=== PATIENT | male | born 1970 | race Caucasian/White ===

== ENCOUNTER 2017-04-02 20:15 | Inpatient (IN) | payer OTHER ==
[~2017-04-02] VITALS: Ht 172.7 cm; Wt 105.8 kg
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
[2017-04-03 07:18] LABS: ALBUMIN 3.7 gm/dL (3.5-5.0); ALK PHOS 60 IU/L (33-138); ALT 40 IU/L (12-78); ANION GAP 11.2 (10.0-19.0); AST 20 IU/L (10-40); BLOOD UREA NITROGEN 12 mg/dL (6-24); CALCIUM 8.1 mg/dL (8.5-10.5); CHLORIDE 105 mMol/L (96-110); CO2 26 mMol/L (22-32); CREATININE 0.7 mg/dL (0.6-1.3); POTASSIUM 4.2 mMol/L (3.7-5.1); SODIUM 138 mMol/L (135-145); TOTAL BILIRUBIN 0.7 mg/dL (0.0-1.5); TOTAL PROTEIN 7.6 g/dL (6.0-8.4)
[2017-04-03 07:19] LABS: ESTIMATED GFR (MDRD EQUATION) > 60
[2017-04-03] MEDS ORDERED: AMARYL2 MG PO (09:45)
[2017-04-03] MEDS ORDERED: PAXIL20 MG PO (09:46)
[2017-04-03] MEDS ORDERED: PRINIVIL (ZESTR20 MG PO (09:47)
[2017-04-03] MEDS ORDERED: GLUCOPHAGE1000 MG PO (09:47)
[2017-04-04 05:09] LABS: BASOPHIL % 0.3 %; EOSINOPHIL # 0.1 K/uL (0.0-0.5); EOSINOPHIL % 0.5 %; HEMATOCRIT 36.3 % (37.0-53.0); IMMATURE GRANULOCYTE % 0.4 %; LYMPHOCYTE # 1.5 K/uL (0.8-4.0); LYMPHOCYTE % 14.6 %; MCHC 33.1 gm/dL (32.0-36.5); MCV 90.8 fl (83.0-98.0); MONOCYTE % 9.4 %; MPV 9.7 fl (9.4-12.4); NEUTROPHIL # (ANC) 7.7 K/uL (1.4-9.0); NEUTROPHIL % 74.8 %; NRBC % 0 /100WBC (0-0.00); PLATELET COUNT 216 K/uL (150-450); RDW-CV 12.6 % (11.9-14.6); WBC 10.3 K/uL (4.0-11.0)
== END 2017-04-06 15:00 | DRG 471 ==
LOC: GACC 20:15 → GMED 20:15 → GICU 21:27 → GPCU 21:27 → GICU 04-03 18:23
PROVIDERS: Internal Medicine; ADMIT Surgery
PROC: 0RG10K0 Fusion of Cervical Vertebral Joint with Nonautologous Tissue Substitute, Anterior Approach, Anterior Column, Open Approach (ICD-10-PCS; principal; 2017-04-03)
DX: M50.020 Cervical disc disorder with myelopathy, mid-cervical region, unspecified level (principal); J96.01 Acute respiratory failure with hypoxia; G95.89 Other specified diseases of spinal cord; S22.41XA Multiple fractures of ribs, right side, initial encounter for closed fracture; S14.3XXA Injury of brachial plexus, initial encounter; F60.9 Personality disorder, unspecified; E11.9 Type 2 diabetes mellitus without complications; F17.210 Nicotine dependence, cigarettes, uncomplicated; H91.90 Unspecified hearing loss, unspecified ear; I10 Essential (primary) hypertension; M43.07 Spondylolysis, lumbosacral region; F32.9 Major depressive disorder, single episode, unspecified; F41.9 Anxiety disorder, unspecified; S42.001A Fracture of unspecified part of right clavicle, initial encounter for closed fracture; V59.88XA Occupant (driver) (passenger) of pick-up truck or van injured in other specified transport accidents, initial encounter; E78.5 Hyperlipidemia, unspecified; Z98.1 Arthrodesis status
CPT/HCPCS: C1713; J0690; J1100; J1170; J1885; J2001; J2250; J2270; J2405; J3010; J3360; J7030; J7040; Q9967

== ENCOUNTER 2017-04-06 15:56 | Inpatient (IN) | payer OTHER ==
[~2017-04-06] VITALS: Ht 172.7 cm; Wt 101.2 kg
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
[~2017-04-06 15:56] MED LIST: AMARYL2 MG PO; GLUCOPHAGE1000 MG PO; PAXIL20 MG PO; PRINIVIL (ZESTR20 MG PO
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
--- NOTE | 2017-04-07 05:32 | NUR ---
Significant Event:A/O. 1 assist with gaitbelt and jeremias-walker. R) arm in sling and elevated when up. Edema glove to Right hand daily. Abrasions to forehead, back of neck, right elbow and a few scattered bruises too. Numbness & tingling to Right extremities upper and lower. [place] to right front of neck open to air and intact. Nicotene patch to back of left shoulder. Saline lock to inner left forearm, flushes well. VSS on room air. history of depression. ACHS accuchecks with appropriate sliding scale. HS glucose 186 no sliding scale needed. Percocet 2 tabs given X2 for pain last at 0107, relief noted. Wears alexander stockings during the day, calf pneumatics at night.Call light in reach. Bed alarm on. Follow up:Pain control. Edema glove. ACHS accuchecks.
[2017-04-07 05:43] LABS: BASOPHIL # 0.1 K/uL (0.0-0.2); BASOPHIL % 0.9 %; EOSINOPHIL # 0.2 K/uL (0.0-0.5); EOSINOPHIL % 2.2 %; HEMATOCRIT 35.4 % (37.0-53.0); HEMOGLOBIN 12.1 g/dL (12.0-17.0); IMMATURE GRANULOCYTE # 0.1 K/uL (0.0-0.3); IMMATURE GRANULOCYTE % 0.7 %; LYMPHOCYTE # 1.8 K/uL (0.8-4.0); MCH 30.6 pg (27.0-34.0); MCHC 34.2 gm/dL (32.0-36.5); MCV 89.6 fl (83.0-98.0); MONOCYTE # 0.9 K/uL (0.0-1.0); MONOCYTE % 12.3 %; MPV 9.4 fl (9.4-12.4); NEUTROPHIL # (ANC) 4.3 K/uL (1.4-9.0); NEUTROPHIL % 58.9 %; NRBC % 0 /100WBC (0-0.00); RBC 3.95 M/uL (4.00-6.00); RDW-CV 12.5 % (11.9-14.6); WBC 7.4 K/uL (4.0-11.0)
[2017-04-07 05:47] LABS: PLATELET COUNT 291 K/uL (150-450)
[2017-04-07 06:04] LABS: ALK PHOS 55 IU/L (33-138); ALT 32 IU/L (12-78); AST 21 IU/L (10-40); BLOOD UREA NITROGEN 16 mg/dL (6-24); CALCIUM 8.3 mg/dL (8.5-10.5); CHLORIDE 109 mMol/L (96-110); CO2 26 mMol/L (22-32); CREATININE 0.6 mg/dL (0.6-1.3); SODIUM 141 mMol/L (135-145); TOTAL PROTEIN 6.9 g/dL (6.0-8.4)
[2017-04-07 06:08] LABS: TOTAL BILIRUBIN 0.4 mg/dL (0.0-1.5)
--- NOTE | 2017-04-07 14:32 | NUR ---
Significant Event:Alert and orientated X 3. 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 Complains of numbness/tingling right arm. Working with therapy to find a sling that will support his right arm, but not put pressure on his neck. Pt has multiple abrasions sites that are healing on his torso, and extremities,note charting asseessments, unchanged. Mike intact right neck front. Nicotine patch right shoulder, changed after shower/dressed per therapy. Pt reports his right thumb hurts when he raises and lowers it. Has a history of depression, monitor. Request pain meds as needed, Percocet. Pt has been pleasant and cooperative with plan of care. Follow up:accuchecks AC/HS, pain control, monitor depression
--- NOTE | 2017-04-08 02:51 | NUR ---
Significant Event: A&Ox3, VSS on room air. Transfers with 1PA with jeremias walker. Arm in sling when up. Repositioned per request. ACHS. No SSI needed. Rested well this shift. Follow up: continue with plan of care.
--- NOTE | 2017-04-08 16:13 | NUR ---
Significant Event:Alert and orientated x 3. No change in assesment, except discovered isotoner glove on right hand is for left hand, note new order for right hand glove, not sure if this will help with the right hand thumb pain pt has, hopefull get new glove tomorrow from therapy. Has history of depression, monitor. Multiple abrasions on torso, and extremities, healing. Pt has been pleasant and cooperative with plan of care. Follow up:Accuchecks AC/HS, pain control, monitor depression.
--- NOTE | 2017-04-08 21:21 | NUR ---
Pt c/o IV site "bothering me," and asked if it could be removed. No current medications being given per IV. IV site Discontinued, IV cath tip intact.
--- NOTE | 2017-04-09 02:57 | NUR ---
Pt is alert and oriented to person, place and time. Pt c/o pain and received pain medication this shift last at 0215 pt rated pain 7/10. Pt stated that his coccyx becomes sore from sitting too long. He did go outside for about 30 min after HS meal with his . Pt asked for IV to be discontinued due to pain. He is not currently receiving IV medication. Blood sugar was 147, he did not need s/s insulin. Pt voices no other complaints at this time.
--- NOTE | 2017-04-09 15:58 | NUR ---
Significant Event:PATIENT ALERT AND ORIENTED THIS SHIFT. VSS. TRANSFERS WITH 1 ASSIST, GAIT BELT AND HEMIWALKER. TOLERATING THERAPIES WELL. ABRASIONS HEALING WELL. SLING TO RIGHT ARM AT ALL TIMES. ACCU CHECKS HAVE NOT REQUIRED ANY SLIDING SCALE. TAKES PERCOCET FOR PAIN. LAST DOSE GIVEN AT 1030 THIS AM. NO OTHER COMPLAINTS. Follow up:
[2017-04-09 18:01] LABS: BILIRUBIN URINE NEGATIVE (NEGATIVE); BLOOD URINE NEGATIVE /UL (NEGATIVE); COLOR URINE YELLOW (YELLOW); GLUCOSE URINE NEGATIVE (NEGATIVE); KETONE URINE NEGATIVE (NEGATIVE); LEUKOCYTES URINE NEGATIVE /UL (NEGATIVE); NITRITE URINE NEGATIVE (NEGATIVE); PROTEIN URINE NEGATIVE (NEGATIVE); TURBIDITY URINE CLEAR (CLEAR); UROBILINOGEN URINE 8 mg/dL (NORMAL)
--- NOTE | 2017-04-10 05:48 | NUR ---
Alert and oriented. Talkative and in good spirits tonight. Takes Percocet 2 tabs for rt shoulder pain. Last given at 0355. HS mwbd=805 with no sliding scale needed. Up with one assist and hemiwalker. Sling to rt arm. Anxious to go home, hoping for Sunday.
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
--- NOTE | 2017-04-10 16:48 | NUR ---
Significant Event:PATIENT ALERT AND ORIENTED THIS SHIFT. VSS. TRANSFERS WITH 1 ASSIST, GAIT BELT AND HEMIWALKER. TAKES PERCOCET FOR PAIN. LAST DOSE OF 2 TABS PO GIVEN AT 1235. ACCU CHECKS HAVE NOT REQUIRED ANY SLIDING SCALE TREATMENT. RESTS IN CHAIR OR BED BETWEEN THERAPIES. WEARS SLING TO RIGHT ARM. NO OTHER COMPLAINTS. Follow up:
--- NOTE | 2017-04-11 04:30 | NUR ---
Alert and oriented. Calls for asssitance as needed. Up with one standby assist, gaitbelt and hemiwalker. Takes Percocet for pain. Last given at 0135. Would like pain meds at 0600, one hour before having to begin therapy today with OT shower.
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
--- NOTE | 2017-04-11 11:52 | NUR ---
D: TR progress note for 04/11/17. I: Pt seen for 2 units at 1100 in group session for education on safety when around pets/animals, functional transfers, leisure education and coping strategies. R: Pt seen for functional skills building working on relaxation techniques, stress/pain management, and continued education on coping skills using animals for Animal Assisted Therapy. Pt completed functional communication skills independently which included personal introduction self and hometown. Pt was SBA when petting and interacting with animals/volunteers during Animal Assisted Therapy utilizing LUE with good safety awareness and bilateral scanning. Education done on safety with ambulation/mobility in homes when around animals, safety with possibility of poor skin integrity and utilizing pets to assist with coping and stress/pain management when opportunity available. Pt transferred sit > stand from WC SBA, pivoted to bed with cane CGA and transferred into bed SBA. P: Will continue to see to address goals and plan of care.
--- NOTE | 2017-04-11 13:41 | NUR ---
Significant Event:Pt arrouses easily, expresses needs well. Requests Percocet 2 tabs as needed for right shoulder/neck pain, note MAR. Accuchecks have been WNL per scale. Transfers with 1 assist, hemiwalker/GB. Sling on right arm when up and about, lays arm on pillow when sitting. Pt has been pleasant and cooperative with plan of care. Follow up:pain control, accuchecks, sling R arm, likes pain meds 1hour before therpy starts in am.
--- NOTE | 2017-04-12 02:54 | NUR ---
Significant Event: Patient alert and oriented, VSS. Up one hands on GB/hemiwalker. Sling to his right arm when up. Edema glove for his right hand. [place] have been removed from surgical incision to right side of his neck. Accu checks AC&HS last night 141 no SSI needed. Pain to his right arm and neck Percocet given at 2328 will likely get another dose before shift end. Follow up:
--- NOTE | 2017-04-12 16:05 | NUR ---
Significant Event: Pt up in room and bullard with SBA, sling on rt arm, hemiwalker. Accuchecks 113,77. 2 percocet at 1010. Alarms on for safety. Nicotine patch to rt shoulder. Edema glove to rt hand. Deaf in left ear. Follow up: pt wants outing pass for tomorrow night. pain management, safety
--- NOTE | 2017-04-13 03:07 | NUR ---
Significant Event: Patient is alert and oriented, VSS. Up 1 hands on assist with GB/Hemiwalker. Gait is steady. May try to get up w/o calling. Wears sling to his right arm when up and an edema glove to his right hand. C/O of pain to his right arm/neck takes Percocet 2 tabs for this. Had Percocet last at 2202. Mike were removed from right neck on Sunday. Accu checks AC& HS BS are always with in parameters of mild SS, No insulin needed. Nicotine patch to right shoulder. Follow up: Has an order for outing today.
--- NOTE | 2017-04-13 13:39 | NUR ---
D: TR progress note for 04/13/17. I: Pt seen for 2 units at 904 for community integration skills building, functional transfers, and safety awareness. R: Pt seen for functional skills building working on mobility, safety, functional transfers and community skills in anticipation for discharge back into community. Pt transferred sit > stand from SBA, ambulated with tripod cane 4 feet to vehicle and 50 feet back into [facility] upon return car ride SBA. Pt transferred in vehicle CGA with concerns for bumping head and SBA out with verbal cue for safety with hand placement. Pt was SBA for BLE management and positioning of self with seat surface adapted using trash bag to ease task. Pt tolerated with no C/o pain, discomfort or nausea, independent with path- finding to navigation to own home with community outing discussed for safety concerns. P: Will continue to see to address goals and plan of care.
--- NOTE | 2017-04-13 13:55 | NUR ---
Significant Event: Alert/oriented x 3. Vitals stable. Percocet last given at 1225. Sling to right arm, upper arm/chest remain ecchymotic. 1 assist with gait belt and cane. Follow up:
--- NOTE | 2017-04-14 05:07 | NUR ---
Patient alert and oriented. Transfers 1A GB/walker. Was on outing with from [id number]. VSS. Takes percocet for pain. Sling to R) arm and edema glove to R) hand. ACHS accu checks. Ecchymosis to arm and chest. Cooperative with cares.
--- NOTE | 2017-04-14 15:45 | NUR ---
Significant Event: Pt up in room and bullard ad marion, steady, ron. well. 2 percocet at 1029. BM 04/13. Pt cooperative with cares. Weakness to rt arm remains. Numbnss and tingling present to rt arm, hands, feet. intermittent. Follow up: activity, pain management
--- NOTE | 2017-04-15 04:54 | NUR ---
Significant Event:A/O X3. Ad marion in room w/ cane. Steady. Ambulated off the floor with SO. Nicotene patch to R) shoulder blade. Edema glove to right hand. Minimal movement of R) hand, no grasp yet. Numbness and tingling to right side at times. 2 percocet @ 0115, relief noted. Call light in reach. Cooperative with cares. Follow up:Pain management Exercise
--- NOTE | 2017-04-15 16:35 | NUR ---
Significant Event: Pt up in room and bullard ad marion, steady, ron. well. Pt has sling on rt arm when up. Pt went on outing today with family. 2 percocet given this am prior to outing. Pt refused offer for pain med upon arrival back on floor. Accuchecks 127,104. Slight movement of rt hand. Edema glove on right. Pt pleasant and cooeprative with cares. Follow up: activity, pain management
--- NOTE | 2017-04-16 03:44 | NUR ---
Significant Event:A/O. Ad marion in room with cane. Sling to right arm when up. Patient in room all shift, periods of sadness. Bored. Nicotene patch missing from left shoulder. Edema glove to right hand. Slight movement of right hand, finds curved into my hand for senior accountant test. Numbness anf tingling to extremities but more in right side. ACHS accuchecks. glucose at HS 179= no sliding scale required. Follow up:Ad marion. Ready to go home. Bored. Activity. Pain management.
[2017-04-16 06:24] LABS: ALBUMIN 3.7 gm/dL (3.5-5.0); ALK PHOS 106 IU/L (33-138); ALT 49 IU/L (12-78); ANION GAP 9.3 (10.0-19.0); AST 19 IU/L (10-40); BLOOD UREA NITROGEN 15 mg/dL (6-24); CALCIUM 8.6 mg/dL (8.5-10.5); CHLORIDE 105 mMol/L (96-110); CO2 28 mMol/L (22-32); CREATININE 0.7 mg/dL (0.6-1.3); POTASSIUM 4.3 mMol/L (3.7-5.1); SODIUM 138 mMol/L (135-145); TOTAL PROTEIN 7.9 g/dL (6.0-8.4)
[2017-04-16 06:27] LABS: TOTAL BILIRUBIN 0.3 mg/dL (0.0-1.5)
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
--- NOTE | 2017-04-16 17:49 | NUR ---
Significant Event: Pt able to verbalize needs. Pt up ad marion in room. Pt took Percocet at 1111 for shoulder pain, relief noted. Accuchecks today were 97, 113, no insulin needed. Pt has sling for R)arm. Follow up:
--- NOTE | 2017-04-17 04:14 | NUR ---
Significant Event:A/O. Ad marion in room. Right arm in sling when up. elevate when not up and around. Able to slightly curve fingers of right hand in toward palm now. Edema to BLE. VSS on room air. Nicotene patch to right shoulder. 2 Percocet X2 this shift last at 0120 for shoulder and back pain. Restless. Call light in reach. Follow up:Therapy. Pain control. Discharge Sunday.
--- NOTE | 2017-04-17 10:56 | NUR ---
A-NUTRITION F/U 04/16 WT 101.2 KG LABS: PREALB 34.0; UP FROM 18.0 NO NEW MEDS. PLAN TO D/C HOME ON 04/20 DIET RX: CONSISTENT CARB. PO INTAKE 100%. PO INTAKE PROVIDING AVG OF 1885 KCALS AND 113 GM PROTEIN. EST NUTR NEEDS: 8471-0056 KCALS AND 105-140 GM PROTEIN D-NOT AT NUTRITION RISK; NO NUTRITION DX IDENTIFIED I-CONTINUE W/CURRENT DIET RX M/E-ASSIST NEEDED
--- NOTE | 2017-04-17 13:47 | NUR ---
Significant Event: Alert and oriented x 3. Up ad marion. Percocet given at 0646. Accuchecks ACHS. 115 and 88 this shift. No sliding scale needed. Sling to R) arm. Nicotine patch to left upper arm. Follow up:
--- NOTE | 2017-04-17 16:34 | NUR ---
D: TR progress note for 04/17/17. I: Pt seen for 2 units at 1400 for community integration skills building, functional transfers and safety awareness. R: Pt seen for functional skills building working on safety, transfers, and discharge planning to increase community skills in anticipation for discharge back into community. Pt taken around [facility] simulate community environment, ambulated community distances through multiple thresholds and surfaces, able to operate elevators independently with good pathfinding skills. Pt transferred on/off community style chairs (2) without armrest mod I and able to verbalize correct sequence and proper technique to ascend/descend curb along with education done on energy conservation and safety with standing rest break in community setting. P: Will discharge home at end of week.
--- NOTE | 2017-04-18 01:30 | NUR ---
Significant Event:A/O. Ad marion with quad cane, R) arm in sling when up otherwise elevated. Edema glove to R) hand. Nicotene patch to R) shoulder. R) hand swollen, unable to grasp anything with hand, starting to move slightly with alot of concentration. Numbness and tingling to all extremities, worse on Right side. ACHS accuchecks. 218 at HS = 2 units Novolog. percocet for pain pain at 2136& 0140. Call light in reach. Follow up:Discharge Sunday. Accuchecks. Therapy. Pain management.
--- NOTE | 2017-04-18 16:49 | NUR ---
Significant Event:PATIENT ALERT AND ORIENTED THIS SHIFT. VSS. TRANSFERS INDEPENDANTLY. SLING TO RIGHT ARM WHEN UP. ABLE TO GET SELF DRESSED FOR THE DAY. TOLERATING THERAPY WITHOUT DIFFICULTY. ACCU CHECKS HAVE NOT REQUIRED ANY SLIDING SCALE TODAY. TAKES PERCOCET FOR PAIN. LAST DOSE GIVEN AT 1352. NO OTHER COMPLAINTS. Follow up:
--- NOTE | 2017-04-19 03:59 | NUR ---
Significant Event: A&Ox3, VSS on room air. Up ad-marion in room, tripping hazards removed. Slin kee when up. Patient transfers well. Calls when he needs assistance. Slept well. Percocet, 2 tabs, given with HS meds. ACHS with no SSI needed. Follow up:
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
--- NOTE | 2017-04-20 04:10 | NUR ---
Significant Event: A&Ox3, VSS on room air. Up ad-marion in room. Sling on right arm when up. Splint to right leg when up. Steady gait. Percocet, 2 tab, given at HS. D/C today at 1400. Follow up appointment needs to be made with Dr. Barros before discharge today. Follow up:
--- NOTE | 2017-04-20 09:22 | NUR ---
Significant Event:Pt awake during rounds, requested pain meds as he felt he missed a PRN dose last noc. Takes meds without difficulty. A & O x 3. Ambulates in rm and hallway, steady on feet. Wears right arm sling, with 1+ edema in right hand, and N/T. Accucheck WNL,note documentation. Apt with Dr Brad elizondo. Working on discharge instructions. Attended Therapy as scheduled, plans for ride to arrive approx. 1400, hopes to go promptly then. Pt has been pleasant and cooperative with plan of care. Follow up:discharge for today.
[2017-04-20] MEDS ORDERED: COLACE100 MG PO (10:31)
[2017-04-20] MEDS ORDERED: NICOTINE PATCH1 EACH TRANS (10:35)
[2017-04-20] MEDS ORDERED: NICODERM / HABIT7 MG TRANS (10:36)
[2017-04-20] MEDS ORDERED: PERCOCET 5-3251 EACH PO (10:37)
--- NOTE | 2017-04-20 12:14 | NUR ---
Reviewed discharge summary with pt, follow up apts, prescriptions, and last dose med given. And prescription for knee brace. Pt waiting for his to come, reports she should be her approx. 1230 and may start packing and take some down to the car, while he is @ therapy from 1230 to 1300. Pt anxious to go home.
--- NOTE | 2017-04-20 12:40 | NUR ---
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 Tellez, and Giana Sheth [employer] TECHNICIAN Discussed rehab plan, patient progress, discharge plan and estimated length of stay of d/c planned on 04/20/17 Patient/Family Preference: In agreement. Anticipated discharge disposition: home with outpatient therapy. Education completed: Education was completed with patient regarding length of stay, progress in therapy and d/c plan. Assessment/Recommendation: Team recommends d/c on 04/20/17. P: Case Coordination: Em is a 46 year old man from [place], [place] admitted after an injury with surgery needed. Plan is to d/c on Sunday. DME ordered through [employer] comp. No other needs identified. Will call patient next week to see how he is doing post discharge.
--- NOTE | 2017-04-20 13:00 | NUR ---
Pt's here, pt ready to go, taken to [address]. Discharged to care of S.O. to go home for home care. Possessions, and Discharge paper work sent.
== END 2017-04-20 13:04 | disposition disaster alternative care site (69) | DRG 946 ==
LOC: GIRP 15:56
PROVIDERS: ADMIT Physical Medicine & Rehabilitation
PROC: F08Z4ZZ Home Management Treatment (ICD-10-PCS; principal; 2017-04-06)
PROC: F07Z9ZZ Gait Training/Functional Ambulation Treatment (ICD-10-PCS; principal; 2017-04-06)
PROC: F07M6ZZ Therapeutic Exercise Treatment of Musculoskeletal System - Whole Body (ICD-10-PCS; principal; 2017-04-06)
DX: S14.129D Central cord syndrome at unspecified level of cervical spinal cord, subsequent encounter (principal); E66.01 Morbid (severe) obesity due to excess calories; I10 Essential (primary) hypertension; S14.3XXD Injury of brachial plexus, subsequent encounter; E11.9 Type 2 diabetes mellitus without complications; V59.88 Occupant (driver) (passenger) of pick-up truck or van injured in other specified transport accidents; E78.5 Hyperlipidemia, unspecified; Z68.35 Body mass index [BMI] 35.0-35.9, adult; G47.00 Insomnia, unspecified; R45.86 Emotional lability; R26.9 Unspecified abnormalities of gait and mobility; Z79.84 Long term (current) use of oral hypoglycemic drugs; F60.9 Personality disorder, unspecified; Z72.0 Tobacco use; R60.0 Localized edema
CPT/HCPCS: J1650

== ENCOUNTER → 2017-05-23 | Outpatient (CLI) | payer OTHER ==
[~2017-05-23] MED LIST changes: +COLACE100 MG PO; +NICODERM / HABIT7 MG TRANS; +NICOTINE PATCH1 EACH TRANS; +PERCOCET 5-3251 EACH PO
== END | disposition disaster alternative care site (69) ==
LOC: GRAD 11:21
DX: M25.551 Pain in right hip (principal); M16.11 Unilateral primary osteoarthritis, right hip; M47.898 Other spondylosis, sacral and sacrococcygeal region; M51.86 Other intervertebral disc disorders, lumbar region; Z87.828 Personal history of other (healed) physical injury and trauma